=== PATIENT | female | born 1930 ===

== ENCOUNTER 2018-03-14 10:43 | Emergency (ER) | payer OTHER ==
--- NOTE | 2018-03-14 11:20 | EDPHY ---
H & P Stated Complaint: bilateral leg swelling for 3 days, denies pain or shortness of breath Time Seen by Provider: 03/14/18 10:54 HPI/ROS: CHIEF COMPLAINT: Left greater than right leg swelling History by patient HISTORY OF PRESENT ILLNESS: 87-year-old woman with a history of hypertension and a history of pulmonary embolism 2-3 years ago presents complaining of 2-3 days of leg swelling, particularly in her left. The patient has a family noticed also that her legs seemed swollen. This is not a chronic problem for her and she has never had before. She feels that the swelling particularly in her left leg has progressed up into her thigh. Family also states that she has complained of some leg pain over the past several days, particularly on the left. Patient denies any leg pain currently. She denies any trauma. She denies any fever. She has had no chest pain or shortness of breath. She has no prior history of heart problems or congestive heart failure. She has a history of hypertension for which she is on her medications that she takes regularly and have not changed recently. REVIEW OF SYSTEMS: As in HPI, and all other systems reviewed and are negative Source: Patient - Medical/Surgical History Other PMH: hypothyroid, htn, high cholestrol, macular degenerative, glaucoma, eye surg, shoulder surg - Social History Smoking Status: Former smoker - Physical Exam Exam: General Appearance: Alert, pleasant, speaking full sentences, well appearing. Head: normocephalic, atraumatic Eyes: Pupils equal and round, reactive to light, no pallor or injection. Mouth: Mucous membranes moist. Respiratory: Normal, effort, lungs are clear to auscultation. No wheezes, rales or rhonchi. Cardiovascular: Regular rate and rhythm. S1, S2, no murmurs, gallops or rubs appreciated Gastrointestinal: Abdomen is soft and nontender, no masses, bowel sounds normal. Back: No CVA tenderness, no bony tenderness, no presacral edema Neurological: Awake, alert and oriented x 3, no pronator drift, normal gait, no pronator drift Skin: Warm and dry, no rashes. Musculoskeletal: No deformities or tenderness. Extremities: full range of motion, trace pitting edema to knees, left greater than right,, DP and PT 2+ bilat Psychiatric: Patient has normal affect, there is no agitation. Constitutional: Initial Vital Signs Temperature (C) 37.1 C 03/14/18 10:55 Heart Rate 89 03/14/18 10:55 Respiratory Rate 18 03/14/18 10:55 Blood Pressure 191/88 H 03/14/18 10:55 O2 Sat (%) 95 03/14/18 10:55 O2 Delivery Mode Room Air Allergies/Adverse Reactions: No Known Allergies Allergy (Unverified 03/14/18 10:52) Home Medications: Medication Instructions Recorded LISINOPRIL 11/23/10 Atorvastatin Calcium 03/14/18 Levothyroxine 03/14/18 Methimazole 03/14/18 Pantoprazole Sodium 03/14/18 Medical Decision Making - Diagnostics Imaging Results: Imaging Impressions Extremity Venous Study 03/14/18 11:16 Impression: 1. Normal bilateral venous Doppler study. 2. Bilateral Sinclair's cysts noted. Findings discussed with Faiza Prieto MD at 13:29 hour, 03/14/2018. ED Course/Re-evaluation: 87-year-old woman with history of hypertension presents with acute left greater than right lower extremity edema. All the patient does have some trace pitting edema her exam is unimpressive and there is no evidence of cellulitis or traumatic lesion. Because of her prior history of DVT and the asymmetric of her symptoms and ultrasound was obtained to evaluate for DVT. Ultrasound showed no evidence of DVT. The patient did have bilateral Sinclair cyst. Given that she is otherwise asymptomatic I doubt congestive heart failure or pulmonary edema as a cause of her lower extremity edema. Further discussion with her family patient has had Sinclair cyst diagnosed in the past as well as lower extremity edema diagnosed in the past. I am recommending close follow-up with her primary care physician. We discussed return precautions such as chest pain, trouble breathing, fever, worsening leg pain or inability to walk or other new problems or concerns. Departure - Departure Disposition: Home, Routine, Self-Care Clinical Impression: Leg edema Sinclair's cyst, unruptured Qualifiers: Laterality: unspecified laterality Qualified Code(s): M71.20 - Synovial cyst of popliteal space [Sinclair], unspecified knee Condition: Good Instructions: Leg Edema (ED), Bakers Cyst (ED) Additional Instructions: You were seen by Dr. Fiaza Prieto today. We found no evidence of a blood clot in your legs today. You do have Sinclair cyst behind both knees. Compression stockings could help with the leg swelling. Please follow up with her primary care physician. Return for any worsening or new concerns. Referrals: TAMY HOPSON [Primary Care Provider] - As per Instructions
[2018-03-14 13:50] VITALS: BP 148/85
== END 2018-03-14 13:55 | disposition home or self-care (01) ==
LOC: CED 10:43
DX: M71.21 Synovial cyst of popliteal space [Baker], right knee (principal); R60.0 Localized edema; I10 Essential (primary) hypertension; M71.22 Synovial cyst of popliteal space [Baker], left knee; Z87.891 Personal history of nicotine dependence
CPT/HCPCS: 93970-PO